=== PATIENT | female | born 2005 | race African-American/Black ===

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

== ENCOUNTER → 2024-01-24 | Outpatient (REF) | payer OTHER ==
[2024-01-29 11:12] LABS: HPV APTIMA Not Detected (Not Detected)
== END ==
LOC: M PLALAB 16:12
PROVIDERS: ATTEND Nurse Practitioner Family
DX: Z12.4 Encounter for screening for malignant neoplasm of cervix (principal)
CPT/HCPCS: 87624; G0123